=== PATIENT | female | born 1950 | race Caucasian/White ===

== ENCOUNTER 2020-08-04 21:54 | Emergency (ER) | payer MEDICARE ==
[~2020-08-04] VITALS: Ht 157.5 cm; Wt 111.4 kg
[2020-08-04] MEDS ORDERED: ATOR1TAB21 PO (22:18)
[2020-08-04] MEDS ORDERED: LISI40TA PO (22:18)
[2020-08-04] MEDS ORDERED: METF10004 PO (22:18)
[2020-08-04] MEDS ORDERED: PIOG1TAB36 PO (22:18)
[2020-08-04] MEDS ORDERED: HYDR25TAB PO (22:18)
[2020-08-04] MEDS ORDERED: GLIP5TAB20 PO (22:18)
[2020-08-04] MEDS ORDERED: METO1TAB7 PO (22:18)
[2020-08-04] MEDS ORDERED: FLUT44IN INH (22:18)
[2020-08-04] MEDS ORDERED: AMLO1TAB25 PO (22:18)
[2020-08-04] MEDS ORDERED: ALBU83IN INH (22:18)
[2020-08-04] MEDS ORDERED: FLON1SPR NARES (22:18)
[2020-08-04] MEDS ORDERED: ONDANSETRON 4MG/2ML VIAL IV ONE (23:00)
[2020-08-04] MEDS: MORPHINE 4 MG/ML 1ML VIAL/SYRINGE (J2270) IV PRN (23:46)
--- NOTE | 2020-08-04 23:55 | REPVR ---
PROCEDURE INFORMATION: Exam: XR Chest, 1 View Exam date and time: 08/04/2020 11:23 PM Age: 70 years old Clinical indication: Screening exam; Other screening; Additional info: Preop TECHNIQUE: Imaging protocol: XR of the chest Views: 1 view. COMPARISON: No relevant prior studies available. FINDINGS: Lungs: Unremarkable. No consolidation. Pleural space: Unremarkable. No pleural effusion. No pneumothorax. Heart/Mediastinum: Unremarkable. No cardiomegaly. Bones/joints: Unremarkable. IMPRESSION: No acute findings. Electronically signed by: Raj Thomas On 08/04/2020 23:55:07 PM
--- NOTE | 2020-08-04 23:57 | REPVR ---
PROCEDURE INFORMATION: Exam: XR Left Femur Exam date and time: 08/04/2020 11:23 PM Age: 70 years old Clinical indication: Injury or trauma; Fall; Initial encounter; Sprain or strain; Patella or knee; Left; Additional info: Femur fracture TECHNIQUE: Imaging protocol: XR Left femur. Other technique: Only one view was obtained. COMPARISON: No relevant prior studies available. FINDINGS: Bones/joints: Overlying fabric obscures the finer details. There is acute comminuted fracture of the distal femoral diaphysis. IMPRESSION: Acute comminuted fracture of the distal femoral diaphysis. Electronically signed by: Raj Thomas On 08/04/2020 23:56:57 PM
[2020-08-05 00:13] LABS: INR 1.06
[2020-08-05 00:14] LABS: PARTIAL THROMBOPLASTIN TIME 25.9 SECONDS (25.0-38.4)
[2020-08-05 00:19] LABS: CALCIUM LEVEL 9.1 MG/DL (8.8-10.2); CREATININE FOR GFR 0.98 MG/DL (0.55-1.30); GLOMERULAR FILTRATION RATE 59.9 (>45); POTASSIUM SERUM 3.1 MEQ/L (3.5-5.1)
[2020-08-05] MEDS: MORPHINE 4 MG/ML 1ML VIAL/SYRINGE (J2270) IV PRN (00:21)
[2020-08-05 00:22] LABS: BASO % 0.2 % (0.0-1.0); EOS % 0.2 % (0.0-3.0); HEMATOCRIT 42.5 % (36.0-47.0); HEMOGLOBIN 13.7 g/dl (12.0-15.5); LYMPH # 1.2 10^3/uL (1.5-5.0); LYMPH % 8.3 % (24.0-44.0); MEAN CORPUSCULAR HEMOGLOBIN 26.3 pg (27.0-33.0); MEAN CORPUSCULAR HGB CONC 32.2 g/dl (32.0-36.5); MEAN CORPUSCULAR VOLUME 81.7 fl (80.0-96.0); MONO # 0.6 10^3/uL (0.0-0.8); MONO % 4.1 % (0.0-5.0); NEUTROPHILS # 12.1 10^3/uL (1.5-8.5); NEUTROPHILS % 86.1 % (36.0-66.0); PLATELET COUNT, AUTOMATED 280 10^3/uL (150-450); WHITE BLOOD COUNT 14.1 10^3/uL (4.0-10.0)
[2020-08-05 02:32] VITALS: BP 117/60
== END 2020-08-05 02:35 | disposition short-term general hospital (02) ==
LOC: M ED 21:54
DX: S72.402A Unspecified fracture of lower end of left femur, initial encounter for closed fracture (principal); W01.0XXA Fall on same level from slipping, tripping and stumbling without subsequent striking against object, initial encounter; Y92.018 Other place in single-family (private) house as the place of occurrence of the external cause; E11.9 Type 2 diabetes mellitus without complications; I10 Essential (primary) hypertension; Z79.899 Other long term (current) drug therapy; Z91.018 Allergy to other foods
CPT/HCPCS: 71045; 73502; 73552; 73564; 80048; 85025; 85610; 85730; 96374; 96375; 96376; 99284; J2270; J2405; U0002